=== PATIENT | female | born 1995 | race Caucasian/White ===

== ENCOUNTER → 2018-09-26 | Outpatient (REF) | payer MEDICAID ==
[2018-09-26 19:32] LABS: HCG, SERUM QUANTITATIVE 3489 MIU/ML
[2018-09-26 20:21] LABS: HEMATOCRIT 34.9 % (36.0-47.0); HEMOGLOBIN 11.5 g/dl (12.0-15.5); MEAN CORPUSCULAR HEMOGLOBIN 28.5 pg (27.0-33.0); MEAN CORPUSCULAR VOLUME 86.6 fl (80.0-96.0); PLATELET COUNT, AUTOMATED 421 10^3/uL (150-450); RED BLOOD COUNT 4.03 10^6/uL (4.00-5.40); WHITE BLOOD COUNT 8.4 10^3/uL (4.0-10.0)
[2018-09-27 10:45] LABS: RUBELLA IgG QUALITATIVE IMMUNE (IMMUNE)
[2018-09-27 11:13] LABS: HEPATITIS C VIRUS ABY INDEX < 0.0 INDEX (<0.8)
[2018-09-27 15:21] LABS: HIV 1&2 SCREEN CENTAUR NEGATIVE (NEGATIVE)
== END ==
LOC: M LAB REF 17:18
PROVIDERS: ATTEND Nurse Practitioner Women's Health
DX: Z32.01 Encounter for pregnancy test, result positive (principal); O36.80X0 Pregnancy with inconclusive fetal viability, not applicable or unspecified

== ENCOUNTER → 2019-01-20 | Outpatient (REF) | payer OTHER, MEDICAID | LOC: M LAB REF 13:15 | PROVIDERS: ATTEND Nurse Practitioner Women's Health | DX: Z34.82 Encounter for supervision of other normal pregnancy, second trimester (principal) ==